=== PATIENT | female | born 1955 | race Caucasian/White ===

== ENCOUNTER 2021-06-14 12:20 | Emergency (ER) | payer OTHER ==
[~2021-06-14] VITALS: Ht 157.5 cm; Wt 64.4 kg
--- NOTE | 2021-06-14 12:20 | NUR ---
PATIENT BIBA TO BED 5 AT THIS TIME.
[2021-06-14 12:27] VITALS: BP 151/81
--- NOTE | 2021-06-14 13:07 | NUR ---
65 YEAR OLD FEMALE COMPLAINS OF NAUSEA, VOMITTING, AND ABDOMINAL PAIN AFTER EATING FOOD IN THE MORNING. PT DENIES NAUSEA DUE TO TAKING ZOFRAN PRIOR TO ARRIVAL, PT DENIES ABDOMINAL PAIN. PT AOX4, BREATHING EVEN AND UNLABORED, SKIN WARM AND DRY. BED IN LOWEST POSITION, LOCKED, BED RAIL UPX1. PMH - DM2, HTN ALLERGIES - BACTRIM
[2021-06-14] MEDS ORDERED: NACL 0.9% 1,000 ML IV ONE (13:10)
[2021-06-14] MEDS ORDERED: FAMOTIDINE 20 MG/2 ML VIAL IVP ONE (13:10)
[2021-06-14 13:40] LABS: HEMATOCRIT 41.9 % (36-48); HEMOGLOBIN 13.9 g/dL (12.0-16.0); MEAN CORPUSCULAR HEMOGLOBIN 30 pg (27-31); MEAN CORPUSCULAR HGB CONC 33 g/dL (33-37); MEAN CORPUSCULAR VOLUME 90.1 fL (80-94); PLATELET COUNT (AUTO) 297 K/uL (140-450); RED BLOOD CELL COUNT(AUTO) 4.65 MIL/uL (4.20-5.40); RED CELL DISTRIBUTION WIDTH 13.2 % (11.6-13.7); WHITE BLOOD COUNT (AUTO) 21.5 K/uL (4.8-10.8)
[2021-06-14 13:59] LABS: LYMPHOCYTES % (MANUAL) 4 % (20-46); MONOCYTES % (MANUAL) 6 % (5-12)
[2021-06-14 14:03] LABS: ALBUMIN 4.1 g/dL (3.4-5.0); ANION GAP 11.9 (8-16); CARBON DIOXIDE 26.3 mmol/L (21-32); CREATININE 0.8 mg/dL (0.6-1.3); POTASSIUM 3.2 mmol/L (3.5-5.1); TOTAL BILIRUBIN 0.4 mg/dL (0.0-1.0)
[2021-06-14] MEDS ORDERED: ONDA-25 PO (14:38)
--- NOTE | 2021-06-14 14:50 | NUR ---
Patient discharged with v/s stable. Written and verbal after care instructions about h pylori, vomitting given and explained. Patient alert, oriented and verbalized understanding of instructions. Ambulatory with steady gait. All questions addressed prior to discharge. ID band removed. Patient advised to follow up with PMD. Rx of zofran given. Patient educated on indication of medication including possible reaction and side effects. Opportunity to ask questions provided and answered.
[2021-06-14 14:52] VITALS: BP 145/80
== END 2021-06-14 14:50 | disposition home or self-care (01) ==
LOC: MED 12:20
DX: A04.8 Other specified bacterial intestinal infections (principal); R11.10 Vomiting, unspecified; K21.9 Gastro-esophageal reflux disease without esophagitis; E11.9 Type 2 diabetes mellitus without complications; I10 Essential (primary) hypertension; Z79.899 Other long term (current) drug therapy; Z90.49 Acquired absence of other specified parts of digestive tract; Z98.890 Other specified postprocedural states; Z88.1 Allergy status to other antibiotic agents; Z88.2 Allergy status to sulfonamides
CPT/HCPCS: 36415; 80053; 83690; 85025; 96361; 96374; 99283; J3490; J7030

== ENCOUNTER 2022-07-04 01:05 | Emergency (ER) | payer OTHER ==
[~2022-07-04] VITALS: Ht 157.5 cm; Wt 62.6 kg
[~2022-07-04 01:05] MED LIST: ONDA-190 PO
[2022-07-04 01:10] VITALS: BP 135/76
--- NOTE | 2022-07-04 01:12 | NUR ---
PT BIBA BLS ER BED 11
--- NOTE | 2022-07-04 01:23 | NUR ---
66 Y/O FEMALE BIBA FROM HOME, C/C OF SUDDEN ONSET ON N/V AT 2230. PT STATES THIS HAS HAPPENED IN PAST AND IS RESOLVED WITH ZOFRAN. REPORTS 8/10 ABD BURNING SENSATION. DENIES BLOOD IN EMESIS. PRESENTS WITH 20G LEFT AC, MEDIC GAVE 4MG OF ZOFRAN IVP, PT VOCALIZED RELIEF. DENIES DIARRHEA, CHEST PAIN, SOB AND FEVER/CHILLS. AMBULATORY, UNLABORED BREATHING, A/OX4; SKIN PINK/WARM/DRY. HX:HTN, HDL, DM, NEUROPATHY BLOOD SUGAR:255 ALLERGY:BACTRIM
[2022-07-04 03:50] LABS: BASOPHILS % (AUTO) 0.2 % (0.0-2.0); EOSINOPHILS % (AUTO) 0.2 % (0.0-4.0); HEMOGLOBIN 13.9 g/dL (12.0-16.0); LYMPHOCYTES # (AUTO) 1.2 K/uL (2.5-16.5); MEAN CORPUSCULAR HEMOGLOBIN 30 pg (27-31); MEAN CORPUSCULAR HGB CONC 33 g/dL (33-37); MONOCYTES # (AUTO) 0.3 K/uL (0.8-1.0); NEUTROPHILS % (AUTO) 89.6 % (42.2-75.2); PLATELET COUNT (AUTO) 250 K/uL (140-450); RED BLOOD CELL COUNT(AUTO) 4.67 MIL/uL (4.20-5.40); RED CELL DISTRIBUTION WIDTH 13.2 % (11.6-13.7); WHITE BLOOD COUNT (AUTO) 15.6 K/uL (4.8-10.8)
[2022-07-04 04:07] LABS: ALBUMIN 3.7 g/dL (3.4-5.0); ANION GAP 13.9 (8-16); CARBON DIOXIDE 26.4 mmol/L (21-32); CREATININE 0.6 mg/dL (0.6-1.3); POTASSIUM 3.3 mmol/L (3.5-5.1); TOTAL BILIRUBIN 0.5 mg/dL (0.0-1.0)
--- NOTE | 2022-07-04 05:30 | NUR ---
PT TAKEN TO CT
--- NOTE | 2022-07-04 05:35 | NUR ---
PT BACK FROM CT.
[2022-07-04] MEDS ORDERED: ONDA-188 SL (05:46)
--- NOTE | 2022-07-04 07:17 | NUR ---
Pt report given to ANGELINE Crandall. Transfer of care at this time.
[2022-07-04 07:23] VITALS: BP 123/65
--- NOTE | 2022-07-04 07:24 | NUR ---
pt calm and resting. denies nausea or vomiting. denies pain. pending ct result
== END 2022-07-04 08:15 | disposition home or self-care (01) ==
LOC: MED 01:05
DX: K21.9 Gastro-esophageal reflux disease without esophagitis (principal); I10 Essential (primary) hypertension; E11.9 Type 2 diabetes mellitus without complications; Z79.4 Long term (current) use of insulin; Z79.899 Other long term (current) drug therapy; Z88.2 Allergy status to sulfonamides; Z88.1 Allergy status to other antibiotic agents; Z72.89 Other problems related to lifestyle
CPT/HCPCS: 36415; 80053; 83690; 85025; 99284

== ENCOUNTER 2023-02-04 20:37 | Emergency (ER) | payer OTHER ==
[~2023-02-04] VITALS: Ht 157.5 cm; Wt 68.0 kg
[~2023-02-04 20:37] MED LIST changes: +ONDA-188 SL
[2023-02-04 20:45] VITALS: BP 150/74
--- NOTE | 2023-02-04 20:45 | NUR ---
TO BED AMBULATORY
--- NOTE | 2023-02-04 21:06 | NUR ---
c/o 10/10 neck pain that started at 5 am this morning radiating to head. per pt, episodes of nausea and vomiting. pt states she hasn't taken anything for that pain. pmhx: hypertension, diabetes, and neuropathy. per pt allergy to sulfa, and trimethoprim, aricept.
--- NOTE | 2023-02-04 21:16 | NUR ---
Dr. Cole by bedside evaluating patient.
[2023-02-04] MEDS ORDERED: ACETAMINOPHEN EXTRA STRENGTH 500 MG TAB PO ONE (21:20)
[2023-02-04] MEDS ORDERED: ONDANSETRON 4 MG ODT PO ONE (21:20)
[2023-02-04] MEDS ORDERED: LORazepam 2 MG/ML VIAL IM ONE (21:20)
[2023-02-04] MEDS ORDERED: DIAZ5TAB6 PO (21:26)
[2023-02-04] MEDS ORDERED: NAPR-54 PO (21:26)
[2023-02-04 22:37] VITALS: BP 124/69
--- NOTE | 2023-02-04 22:38 | NUR ---
Patient discharged with v/s stable. Written and verbal after care instructions given and explained. Alert and responsive. New rx for diazepam, naproxen. Patient verbalized understanding. Ambulatory with steady gait. All questions addressed prior to discharge. Advised to follow up with PMD.
== END 2023-02-04 22:37 | disposition home or self-care (01) ==
LOC: MED 20:37
DX: S16.1XXA Strain of muscle, fascia and tendon at neck level, initial encounter (principal); R51.9 Headache, unspecified; R11.2 Nausea with vomiting, unspecified; E11.40 Type 2 diabetes mellitus with diabetic neuropathy, unspecified; K21.9 Gastro-esophageal reflux disease without esophagitis; I10 Essential (primary) hypertension; Z90.49 Acquired absence of other specified parts of digestive tract; Z98.890 Other specified postprocedural states; Z98.51 Tubal ligation status; Z79.899 Other long term (current) drug therapy; Z79.1 Long term (current) use of non-steroidal anti-inflammatories (NSAID); Z88.8 Allergy status to other drugs, medicaments and biological substances; Z88.2 Allergy status to sulfonamides; Z88.1 Allergy status to other antibiotic agents; X58.XXXA Exposure to other specified factors, initial encounter; Y92.89 Other specified places as the place of occurrence of the external cause; Y93.89 Activity, other specified; Y99.8 Other external cause status
CPT/HCPCS: 96372; 99283; J2060; Q0162